=== PATIENT | female | born 1955 | race Caucasian/White ===

== ENCOUNTER 2021-04-26 23:13 | Inpatient (IN) | payer OTHER, MEDICAID ==
[~2021-04-26] VITALS: Ht 172.7 cm; Wt 72.6 kg
[2021-04-26] MEDS ORDERED: NALOXONE HCL 2 MG in D5W 5% 495 ML IV ONE (23:30)
[2021-04-27 00:04] LABS: Alcohol, Urine < 3.0 mg/dL (0-10); Amphetamine Screen, Urine NEGATIVE (NEGATIVE); Barbiturate Scree,Urine NEGATIVE (NEGATIVE); Benzodiazephine Screen, Urine NEGATIVE (NEGATIVE); Cannabinoid Screen, Urine NEGATIVE (NEGATIVE); Cocaine Screen, Urine NEGATIVE (NEGATIVE); Opiate Scree,Urine NEGATIVE (NEGATIVE); Phencyclidine Screen, Urine NEGATIVE (NEGATIVE)
[2021-04-27 00:04] LABS: Basophils # (auto) 0 10 ^3/uL (0-0.2); Basophils % (auto) 0.2 % (0.0-2.0); Eosinophils # (auto) 0.1 10 ^3/uL (0-0.8); Eosinophils % (auto) 0.5 % (0.0-7.0); Hematocrit 34.7 % (36.0-46.0); Hemoglobin 11.8 g/dL (12.2-16.2); Lymphocytes % (auto) 9.4 % (10.0-50.0); Mean Corpuscular Hemoglobin 33.3 pg (28.0-32.0); Mean Corpuscular Hgb Conc. 33.9 g/dL (32.0-36.0); Mean Corpuscular Volume 98.2 fL (80.0-100.0); Monocytes # (auto) 0.7 10 ^3/uL (0-1.3); Monocytes % (auto) 6.8 % (0.0-12.0); Neutrophils # (auto) 8.5 10 ^3/uL (1.6-8.6); Neutrophils % (auto) 83.1 % (37.0-80.0); Red Blood Cells 3.53 10^6/uL (4.0-5.20); White Blood Cell 10.2 10^3/uL (4.4-10.8)
[2021-04-27 00:23] LABS: Alanine Aminotransferase 23 U/L (13-56); Anion Gap 10 (5-15); Aspartate Aminotransferase 20 U/L (15-37); BUN/Creatinine Ratio 20.6; Blood Alcohol < 3.0 mg/dL (0-5); Blood Urea Nitrogen 36 mg/dL (7-18); Calcium 8.1 mg/dL (8.5-10.1); Carbon Dioxide 21 mmol/L (21-32); Chloride 111 mmol/L (98-107); GFR African American 37 mL/min; GFR Non-African American 31 mL/min; Glucose 107 mg/dL (74-106); Potassium 3.9 mmol/L (3.5-5.1); Sodium 142 mmol/L (136-145)
[2021-04-27 00:25] LABS: Alkaline Phosphatase 63 U/L (45-117); Bilirubin, Total 0.2 mg/dL (0.2-1.0); Total Protein 6.4 g/dL (6.4-8.2)
[2021-04-27] MEDS ORDERED: DOCU100T15 PO (00:28)
[2021-04-27] MEDS ORDERED: DIPH25CA46 PO (00:28)
[2021-04-27] MEDS ORDERED: NALOXONE HCL 2 MG in D5W 5% 495 ML IV ONE (00:30)
[2021-04-27 00:31] LABS: Acetaminophen 2.1 ug/mL (10-30); Salicylate 4.5 mg/dL (2.8-20.0)
[2021-04-27] MEDS ORDERED: NALOXONE HCL 1MG/ML 2ML SYRINGE ONE (00:54)
[2021-04-27] MEDS ORDERED: LISI20TA28 PO (01:39)
[2021-04-27] MEDS ORDERED: POTA1TAB61 PO (01:39)
[2021-04-27] MEDS ORDERED: ATO40T PO (01:39)
[2021-04-27] MEDS ORDERED: FOLITAB22 PO (01:39)
[2021-04-27] MEDS ORDERED: OXYC-113 PO (01:39)
[2021-04-27 03:56] LABS: Albumin 2.7 g/dL (3.4-5.0); BUN/Creatinine Ratio 22.2; Calcium 7.8 mg/dL (8.5-10.1); Potassium 4.5 mmol/L (3.5-5.1)
[2021-04-27 03:59] LABS: Bilirubin, Total 0.3 mg/dL (0.2-1.0); Total Protein 6.2 g/dL (6.4-8.2)
[2021-04-27 04:17] LABS: Urine Bacteria NONE SEEN /hpf (None Seen); Urine Blood Negative /uL (Negative); Urine Hyaline Cast MOD /lpf (0 - 2); Urine Mucus FEW (None Seen); Urine Specific Gravity 1.025 (1.001-1.035); Urine WBC 6 /hpf (0 - 5)
[2021-04-27 06:50] LABS: Alcohol, Urine < 3.0 mg/dL (0-10); Amphetamine Screen, Urine NEGATIVE (NEGATIVE); Barbiturate Scree,Urine NEGATIVE (NEGATIVE); Benzodiazephine Screen, Urine NEGATIVE (NEGATIVE); Cannabinoid Screen, Urine NEGATIVE (NEGATIVE); Cocaine Screen, Urine NEGATIVE (NEGATIVE); Opiate Scree,Urine NEGATIVE (NEGATIVE); Phencyclidine Screen, Urine NEGATIVE (NEGATIVE)
[2021-04-27] MEDS ORDERED: IPRATROPIUM BROM 0.5 MG/2.5ML INH SOL NEB ONE (09:45)
[2021-04-27] MEDS ORDERED: MORPHINE SULFATE INJECTION 2 MG/ML SYRG IV PRN (09:45)
[2021-04-27] MEDS ORDERED: ALBUTEROL SULF 2.5 MG/0.5ML(0.5%) NEB SOLN NEB ONE (09:45)
[2021-04-27] MEDS ORDERED: ALBUTEROL SULF 2.5 MG/0.5ML(0.5%) NEB SOLN NEB PRN (09:45)
[2021-04-27] MEDS ORDERED: ONDANSETRON HCL 4 MG/2 ML VIAL IV PRN (09:45)
[2021-04-27] MEDS ORDERED: IPRATROPIUM BROM 0.5 MG/2.5ML INH SOL NEB PRN (09:45)
[2021-04-27] MEDS ORDERED: NITROGLYCERIN 0.4 MG SL TAB SL PRN (09:45)
[2021-04-27] MEDS ORDERED: PANTOPRAZOLE 40 MG/10 ML VIAL INJ IV SCH (10:00)
[2021-04-27] MEDS ORDERED: ENOXAPARIN SOD 40 MG/0.4 ML SYRINGE SC SCH (10:00)
[2021-04-27] MEDS ORDERED: IPRATROPIUM BROM 0.5 MG/2.5ML INH SOL ONE (10:05)
[2021-04-27] MEDS ORDERED: ALBUTEROL SULF 2.5 MG/0.5ML(0.5%) NEB SOLN ONE (10:05)
[2021-04-27 10:53] LABS: Creatine Kinase IFCC 165 U/L (26-192)
[2021-04-27 11:32] VITALS: BP 98/34
[2021-04-27] MEDS ORDERED: FOLIC ACID 1 MG, MULTIPLE VITAMIN 10 ML, MAGNESIUM SULF SDV 50% 8 MEQ, THIAMINE INJ 100... INJ SCH ×5 (12:00)
[2021-04-27 17:45] VITALS: BP 143/56
== END 2021-04-27 20:39 | disposition left against medical advice (07) | DRG 92 ==
LOC: EDUNIT# 23:13 → EDBD 23:13 → ER 23:14 → TELE 04-27 09:45
PROVIDERS: ADMIT Nurse Practitioner Acute Care; ATTEND Nurse Practitioner Acute Care
DX: G92 Toxic encephalopathy (principal); M62.82 Rhabdomyolysis; N18.31 Chronic kidney disease, stage 3a; R00.1 Bradycardia, unspecified; Z20.822 Contact with and (suspected) exposure to COVID-19; Z53.29 Procedure and treatment not carried out because of patient's decision for other reasons; Z72.0 Tobacco use
CPT/HCPCS: 36415; 36600; 70450; 71045; 80053; 80307; 80320; 80329; 81001; 82550; 82805; 84484; 85025; 87426; 94640; 96365; 96366; 96367; 96372; 96375; C9113; G0378

== ENCOUNTER 2021-11-06 21:09 | Inpatient (IN) | payer OTHER, MEDICAID ==
[~2021-11-06] VITALS: Ht 160 cm; Wt 100.0 kg
[~2021-11-06 21:09] MED LIST: ATO40T PO; DIPH-599 PO; DOCU100T15 PO; FOLITAB22 PO; LISI20TA28 PO; OXYC-113 PO; POTA1TAB61 PO
[2021-11-06] MEDS ORDERED: ROCURONIUM 10MG/ML 10ML VIAL IV ONE (21:45)
[2021-11-06] MEDS ORDERED: ETOMIDATE (2MG/ML) 20ML VIAL IV ONE (21:45)
[2021-11-06 22:09] VITALS: BP 177/147
[2021-11-06 22:30] LABS: Basophils # (auto) 0.1 10 ^3/uL (0-0.2); Basophils % (auto) 1.2 % (0.0-2.0); Eosinophils # (auto) 0.3 10 ^3/uL (0-0.8); Eosinophils % (auto) 2.3 % (0.0-7.0); Hematocrit 44.8 % (36.0-46.0); Hemoglobin 15.1 g/dL (12.2-16.2); Lymphocytes % (auto) 17.6 % (10.0-50.0); Mean Corpuscular Hemoglobin 32.5 pg (28.0-32.0); Mean Corpuscular Hgb Conc. 33.7 g/dL (32.0-36.0); Mean Corpuscular Volume 96.2 fL (80.0-100.0); Monocytes # (auto) 0.9 10 ^3/uL (0-1.3); Monocytes % (auto) 8.4 % (0.0-12.0); Neutrophils # (auto) 7.8 10 ^3/uL (1.6-8.6); Neutrophils % (auto) 70.5 % (37.0-80.0); Nucleated Red Blood Cells % 0.1 %; Red Blood Cells 4.65 10^6/uL (4.0-5.20); White Blood Cell 11.1 10^3/uL (4.4-10.8)
[2021-11-06 22:33] VITALS: BP 187/82
[2021-11-06 22:43] LABS: INR 1.07 (0.9-1.15)
[2021-11-06 22:47] LABS: Albumin 3.4 g/dL (3.4-5.0); BUN/Creatinine Ratio 7.4; Calcium 9.3 mg/dL (8.5-10.1)
[2021-11-06 22:52] LABS: Alcohol, Urine < 3.0 mg/dL (0-10); Amphetamine Screen, Urine NEGATIVE (NEGATIVE); Barbiturate Scree,Urine NEGATIVE (NEGATIVE); Benzodiazephine Screen, Urine NEGATIVE (NEGATIVE); Cannabinoid Screen, Urine NEGATIVE (NEGATIVE); Cocaine Screen, Urine NEGATIVE (NEGATIVE); Opiate Scree,Urine NEGATIVE (NEGATIVE); Phencyclidine Screen, Urine NEGATIVE (NEGATIVE)
[2021-11-06 22:52] LABS: Bilirubin, Total 0.5 mg/dL (0.2-1.0); Total Protein 7.4 g/dL (6.4-8.2)
[2021-11-06 22:59] LABS: Potassium 2.8 mmol/L (3.5-5.1)
[2021-11-06] MEDS: POTASSIUM CHL 20MEQ/100ML 100 ML IV SCH (23:38)
[2021-11-06] MEDS ORDERED: ONDANSETRON HCL 4 MG/2 ML VIAL IV PRN (23:45)
[2021-11-06] MEDS ORDERED: D5W/SOD CHL 0.45% 1,000 ML IV SCH (23:45)
[2021-11-06] MEDS ORDERED: ACETAMINOPHEN 650 MG RECT SUPP PR PRN (23:45)
[2021-11-07] VITALS (73 sets, daily range): BP systolic 74–201; BP diastolic 31–111
[2021-11-07] MEDS ORDERED: MORPHINE SULFATE INJECTION 2 MG/ML SYRG IV PRN ×2 (00:30→10:00)
[2021-11-07] MEDS ORDERED: NITROGLYCERIN 0.4 MG SL TAB SL PRN (00:30)
[2021-11-07] MEDS: POTASSIUM CHL 20MEQ/100ML 100 ML IV SCH ×6 (02:55→22:12)
[2021-11-07 05:44] LABS: Urine Bacteria NONE SEEN /hpf (None Seen); Urine Blood Negative /uL (Negative); Urine Mucus FEW (None Seen); Urine Specific Gravity 1.023 (1.001-1.035); Urine WBC 11 /hpf (0 - 5)
[2021-11-07 05:46] LABS: Basophils # (auto) 0.1 10 ^3/uL (0-0.2); Basophils % (auto) 0.6 % (0.0-2.0); Eosinophils # (auto) 0.1 10 ^3/uL (0-0.8); Eosinophils % (auto) 0.6 % (0.0-7.0); Hematocrit 40.9 % (36.0-46.0); Hemoglobin 14.1 g/dL (12.2-16.2); Lymphocytes % (auto) 7.2 % (10.0-50.0); Mean Corpuscular Hgb Conc. 34.4 g/dL (32.0-36.0); Mean Corpuscular Volume 96.1 fL (80.0-100.0); Monocytes # (auto) 0.7 10 ^3/uL (0-1.3); Monocytes % (auto) 4.8 % (0.0-12.0); Neutrophils # (auto) 11.9 10 ^3/uL (1.6-8.6); Neutrophils % (auto) 86.8 % (37.0-80.0); Red Blood Cells 4.26 10^6/uL (4.0-5.20); Red Cell Distribution Width 14.3 % (11.8-14.3); White Blood Cell 13.8 10^3/uL (4.4-10.8)
[2021-11-07 05:51] LABS: Calcium 8.8 mg/dL (8.5-10.1)
[2021-11-07 05:56] LABS: Bilirubin, Total 0.6 mg/dL (0.2-1.0); Potassium 2.9 mmol/L (3.5-5.1); Total Protein 6.2 g/dL (6.4-8.2)
[2021-11-07 06:29] LABS: BUN/Creatinine Ratio 8.5
[2021-11-07] MEDS: FAMOTIDINE (10MG/ML) 2ML VL IV SCH ×2 (10:55→22:12)
[2021-11-07] MEDS: HEPARIN SODIUM (PORCINE) 5000 UNITS/ML 1ML VIAL SC SCH ×2 (11:15→22:12)
[2021-11-07] MEDS: D5W/SOD CHL 0.45%/KCL 20MEQ 1,000 ML IV SCH (12:17)
[2021-11-07] MEDS: hydrALAZINE HCL 20 MG/ML VL IV PRN (15:29)
[2021-11-07] MEDS ORDERED: MORPHINE SULFATE INJECTION 2 MG/ML SYRG ONE (16:15)
[2021-11-07] MEDS ORDERED: fentaNYL Drip 2500mCg/250mlNS 250 ML IV ONE (17:25)
[2021-11-07] MEDS: fentaNYL Drip 2500mCg/250mlNS 250 ML IV SCH (17:46)
[2021-11-07] MEDS ORDERED: ACETAMINOPHEN 650 MG RECT SUPP PR PRN (19:45)
[2021-11-07] MEDS: PROPOFOL 100 ML IV SCH (20:04)
[2021-11-08] VITALS (68 sets, daily range): BP systolic 66–213; BP diastolic 25–119
[2021-11-08 03:51] LABS: Hematocrit 40.3 % (36.0-46.0); Hemoglobin 13.9 g/dL (12.2-16.2); Mean Corpuscular Hgb Conc. 34.4 g/dL (32.0-36.0); Mean Corpuscular Volume 95.9 fL (80.0-100.0); White Blood Cell 18.7 10^3/uL (4.4-10.8)
[2021-11-08 04:03] LABS: Band Neutrophils % (manual) 0; Basophils % (manual) 0 (0.0-2.0); Blast Cells 0; Eosinophils % (manual) 0 (0-7); Metamyelocytes % 0; Myelocytes % 0; Promyelocytes % 0; Reactive Lymphocytes 0
[2021-11-08 04:07] LABS: Albumin 2.9 g/dL (3.4-5.0); BUN/Creatinine Ratio 11.8; Calcium 8.7 mg/dL (8.5-10.1); Magnesium 2.1 mg/dL (1.6-2.6); Potassium 3.7 mmol/L (3.5-5.1)
[2021-11-08 04:10] LABS: Bilirubin, Total 0.6 mg/dL (0.2-1.0); Total Protein 6.6 g/dL (6.4-8.2)
[2021-11-08 04:52] LABS: Lymphocytes % (manual) 9 (10.0-50.0); Monocytes % (manual) 11 (0-12)
[2021-11-08] MEDS: PROPOFOL 100 ML IV SCH (05:00)
[2021-11-08] MEDS: D5W/SOD CHL 0.45%/KCL 20MEQ 1,000 ML IV SCH ×2 (05:01→21:20)
[2021-11-08] MEDS: FAMOTIDINE (10MG/ML) 2ML VL IV SCH ×2 (09:24→21:20)
[2021-11-08] MEDS: LISINOPRIL 20 MG TAB PO SCH (09:25)
[2021-11-08] MEDS: HEPARIN SODIUM (PORCINE) 5000 UNITS/ML 1ML VIAL SC SCH ×2 (09:25→21:21)
[2021-11-08] MEDS: fentaNYL Drip 2500mCg/250mlNS 250 ML IV SCH (09:39)
[2021-11-08] MEDS: hydrALAZINE HCL 20 MG/ML VL IV PRN ×2 (12:44→21:25)
[2021-11-09] VITALS (24 sets, daily range): BP systolic 125–173; BP diastolic 39–69
[2021-11-09 03:39] LABS: Basophils # (auto) 0.1 10 ^3/uL (0-0.2); Basophils % (auto) 0.4 % (0.0-2.0); Eosinophils # (auto) 0.1 10 ^3/uL (0-0.8); Eosinophils % (auto) 0.4 % (0.0-7.0); Hematocrit 39.6 % (36.0-46.0); Hemoglobin 13.5 g/dL (12.2-16.2); Lymphocytes # (auto) 1.3 10 ^3/uL (0.4-5.4); Lymphocytes % (auto) 8.5 % (10.0-50.0); Mean Corpuscular Hemoglobin 32.6 pg (28.0-32.0); Mean Corpuscular Hgb Conc. 34.1 g/dL (32.0-36.0); Mean Corpuscular Volume 95.7 fL (80.0-100.0); Monocytes # (auto) 1.3 10 ^3/uL (0-1.3); Monocytes % (auto) 8.3 % (0.0-12.0); Neutrophils # (auto) 12.7 10 ^3/uL (1.6-8.6); Neutrophils % (auto) 82.4 % (37.0-80.0); Nucleated Red Blood Cells % 0.1 %; Red Blood Cells 4.14 10^6/uL (4.0-5.20); Red Cell Distribution Width 14.2 % (11.8-14.3); White Blood Cell 15.4 10^3/uL (4.4-10.8)
[2021-11-09 03:56] LABS: BUN/Creatinine Ratio 7.1; Calcium 8.8 mg/dL (8.5-10.1); Potassium 3.2 mmol/L (3.5-5.1)
[2021-11-09] MEDS: hydrALAZINE HCL 20 MG/ML VL IV PRN ×3 (06:15→20:28)
[2021-11-09] MEDS: LISINOPRIL 20 MG TAB PO SCH (10:00)
[2021-11-09] MEDS: HEPARIN SODIUM (PORCINE) 5000 UNITS/ML 1ML VIAL SC SCH ×2 (10:00→20:26)
[2021-11-09] MEDS: FAMOTIDINE (10MG/ML) 2ML VL IV SCH (10:12)
[2021-11-09] MEDS: POTASSIUM CHL 20MEQ/100ML 100 ML IV SCH ×2 (11:53→13:00)
[2021-11-09] MEDS: D5W/SOD CHL 0.45%/KCL 20MEQ 1,000 ML IV SCH (13:55)
[2021-11-09] MEDS ORDERED: cefTRIAXone 1GM/50ML D5W 50 ML IV ONE (15:30)
[2021-11-09] MEDS: MUPIROCIN 2% OINT 15gm or 22gm EACHNOSTRI SCH (20:26)
[2021-11-10] VITALS (25 sets, daily range): BP systolic 122–183; BP diastolic 42–77
[2021-11-10 04:08] LABS: Basophils # (auto) 0 10 ^3/uL (0-0.2); Basophils % (auto) 0.4 % (0.0-2.0); Eosinophils # (auto) 0.1 10 ^3/uL (0-0.8); Hematocrit 39.9 % (36.0-46.0); Hemoglobin 13.5 g/dL (12.2-16.2); Lymphocytes # (auto) 1.3 10 ^3/uL (0.4-5.4); Lymphocytes % (auto) 11.2 % (10.0-50.0); Mean Corpuscular Hemoglobin 32.4 pg (28.0-32.0); Mean Corpuscular Hgb Conc. 33.8 g/dL (32.0-36.0); Mean Corpuscular Volume 95.9 fL (80.0-100.0); Monocytes # (auto) 1.1 10 ^3/uL (0-1.3); Monocytes % (auto) 9.6 % (0.0-12.0); Neutrophils # (auto) 8.8 10 ^3/uL (1.6-8.6); Neutrophils % (auto) 77.8 % (37.0-80.0); Nucleated Red Blood Cells % 0.1 %; Red Blood Cells 4.16 10^6/uL (4.0-5.20); Red Cell Distribution Width 14.3 % (11.8-14.3); White Blood Cell 11.3 10^3/uL (4.4-10.8)
[2021-11-10 04:15] LABS: Magnesium 2.2 mg/dL (1.6-2.6); Potassium 3.8 mmol/L (3.5-5.1)
[2021-11-10] MEDS: hydrALAZINE HCL 20 MG/ML VL IV PRN ×2 (05:34→16:29)
[2021-11-10] MEDS: D5W/SOD CHL 0.45%/KCL 20MEQ 1,000 ML IV SCH ×2 (06:25→22:35)
[2021-11-10] MEDS: cefTRIAXone 1GM/50ML D5W 50 ML IV SCH (08:59)
[2021-11-10] MEDS: HEPARIN SODIUM (PORCINE) 5000 UNITS/ML 1ML VIAL SC SCH ×2 (10:00→19:09)
[2021-11-10] MEDS: MUPIROCIN 2% OINT 15gm or 22gm EACHNOSTRI SCH ×2 (10:00→20:05)
[2021-11-10] MEDS: LISINOPRIL 20 MG TAB PO SCH (10:15)
[2021-11-10] MEDS: METOPROLOL TARTRATE 25 MG TAB PO SCH (20:05)
[2021-11-11] VITALS (16 sets, daily range): BP systolic 125–177; BP diastolic 31–76
[2021-11-11 04:09] LABS: Basophils # (auto) 0 10 ^3/uL (0-0.2); Basophils % (auto) 0.5 % (0.0-2.0); Eosinophils # (auto) 0.1 10 ^3/uL (0-0.8); Eosinophils % (auto) 1.5 % (0.0-7.0); Hematocrit 38.4 % (36.0-46.0); Lymphocytes # (auto) 1.4 10 ^3/uL (0.4-5.4); Lymphocytes % (auto) 16.2 % (10.0-50.0); Mean Corpuscular Hemoglobin 32.8 pg (28.0-32.0); Mean Corpuscular Hgb Conc. 33.9 g/dL (32.0-36.0); Mean Corpuscular Volume 96.6 fL (80.0-100.0); Monocytes % (auto) 11.7 % (0.0-12.0); Neutrophils # (auto) 6.3 10 ^3/uL (1.6-8.6); Neutrophils % (auto) 70.1 % (37.0-80.0); Red Blood Cells 3.97 10^6/uL (4.0-5.20); Red Cell Distribution Width 13.8 % (11.8-14.3); White Blood Cell 8.9 10^3/uL (4.4-10.8)
[2021-11-11 04:19] LABS: Potassium 3.2 mmol/L (3.5-5.1)
[2021-11-11 04:30] LABS: Alanine Aminotransferase 43 U/L (13-56); Albumin 2.5 g/dL (3.4-5.0); Aspartate Aminotransferase 35 U/L (15-37); BUN/Creatinine Ratio 17.6; Blood Urea Nitrogen 9 mg/dL (7-18); Calcium 8.6 mg/dL (8.5-10.1); Carbon Dioxide 26 mmol/L (21-32); GFR African American 155 mL/min; GFR Non-African American 128 mL/min; Glucose 99 mg/dL (74-106)
[2021-11-11 04:33] LABS: Alkaline Phosphatase 65 U/L (45-117); Bilirubin, Total 0.4 mg/dL (0.2-1.0); Total Protein 6.1 g/dL (6.4-8.2)
[2021-11-11 04:44] LABS: Sodium 144 mmol/L (136-145)
[2021-11-11 05:06] LABS: Anion Gap 7 (5-15); Chloride 111 mmol/L (98-107)
[2021-11-11] MEDS ORDERED: POTASSIUM CHL 20MEQ/100ML 100 ML IV ONE (06:00)
[2021-11-11] MEDS: cefTRIAXone 1GM/50ML D5W 50 ML IV SCH (08:46)
[2021-11-11] MEDS: MUPIROCIN 2% OINT 15gm or 22gm EACHNOSTRI SCH ×2 (10:53→21:54)
[2021-11-11] MEDS: LISINOPRIL 20 MG TAB PO SCH ×2 (10:54→11:12)
[2021-11-11] MEDS: METOPROLOL TARTRATE 25 MG TAB PO SCH ×3 (10:54→21:53)
[2021-11-11] MEDS: HEPARIN SODIUM (PORCINE) 5000 UNITS/ML 1ML VIAL SC SCH ×2 (10:55→21:54)
[2021-11-11] MEDS ORDERED: SODIUM CHLORIDE 0.9% 500 ML IV ONE (11:30)
[2021-11-11] MEDS ORDERED: FUROSEMIDE 20 MG/2 ML VIAL IV ONE (13:30)
[2021-11-11] MEDS ORDERED: levoFLOXacin 500MG 100 ML IV ONE (14:15)
[2021-11-11] MEDS: POTASSIUM CHL 20MEQ/100ML 100 ML IV SCH ×2 (16:15→22:29)
[2021-11-12 04:37] VITALS: BP 135/70
[2021-11-12] MEDS ORDERED: POTASSIUM CHL 20 Meq TABLET PO ONE (08:45)
[2021-11-12 09:00] VITALS: BP 146/64
[2021-11-12] MEDS: MUPIROCIN 2% OINT 15gm or 22gm EACHNOSTRI SCH ×2 (09:58→22:31)
[2021-11-12] MEDS: METOPROLOL TARTRATE 25 MG TAB PO SCH ×2 (09:59→22:31)
[2021-11-12] MEDS ORDERED: levoFLOXacin 500MG 100 ML IV SCH (10:00)
[2021-11-12] MEDS: HEPARIN SODIUM (PORCINE) 5000 UNITS/ML 1ML VIAL SC SCH ×2 (10:22→22:00)
[2021-11-12 13:15] VITALS: BP 141/75
[2021-11-12] MEDS ORDERED: POTASSIUM EFFERVESENT TAB 25 MEQ PO ONE (13:45)
[2021-11-12 16:43] VITALS: BP 157/83
[2021-11-12 22:00] VITALS: BP 140/67
[2021-11-12] MEDS ORDERED: TEMAZEPAM 15 MG CAP PO ONE (22:45)
[2021-11-13 05:00] VITALS: BP 136/71
[2021-11-13 05:53] LABS: Basophils # (auto) 0.1 10 ^3/uL (0-0.2); Basophils % (auto) 0.7 % (0.0-2.0); Eosinophils # (auto) 0.2 10 ^3/uL (0-0.8); Eosinophils % (auto) 2.1 % (0.0-7.0); Hematocrit 37.1 % (36.0-46.0); Hemoglobin 12.8 g/dL (12.2-16.2); Lymphocytes # (auto) 2.2 10 ^3/uL (0.4-5.4); Lymphocytes % (auto) 26.7 % (10.0-50.0); Mean Corpuscular Hemoglobin 32.8 pg (28.0-32.0); Mean Corpuscular Hgb Conc. 34.4 g/dL (32.0-36.0); Mean Corpuscular Volume 95.2 fL (80.0-100.0); Monocytes # (auto) 0.8 10 ^3/uL (0-1.3); Monocytes % (auto) 9.1 % (0.0-12.0); Neutrophils # (auto) 5.2 10 ^3/uL (1.6-8.6); Neutrophils % (auto) 61.4 % (37.0-80.0); Nucleated Red Blood Cells % 0.2 %; Red Cell Distribution Width 13.4 % (11.8-14.3); White Blood Cell 8.4 10^3/uL (4.4-10.8)
[2021-11-13 06:15] LABS: Potassium 3.8 mmol/L (3.5-5.1)
[2021-11-13 06:17] LABS: Magnesium 2.3 mg/dL (1.6-2.6)
[2021-11-13 09:00] VITALS: BP 148/70
[2021-11-13] MEDS: MUPIROCIN 2% OINT 15gm or 22gm EACHNOSTRI SCH (09:07)
[2021-11-13] MEDS: METOPROLOL TARTRATE 25 MG TAB PO SCH (09:08)
[2021-11-13] MEDS: HEPARIN SODIUM (PORCINE) 5000 UNITS/ML 1ML VIAL SC SCH (09:11)
[2021-11-13] MEDS ORDERED: levoFLOXacin 500 MG TAB PO SCH (10:00)
[2021-11-13] MEDS ORDERED: LISINOPRIL 20 MG TAB PO ONE (12:45)
[2021-11-13] MEDS ORDERED: OLAN1TAB7 PO (12:46)
[2021-11-13] MEDS ORDERED: LISI20TA28 PO (12:46)
[2021-11-13] MEDS ORDERED: MET25T PO (12:46)
[2021-11-13] MEDS ORDERED: SPIR25TA8 PO (12:52)
[2021-11-13 13:00] VITALS: BP 140/72
[2021-11-13 14:09] VITALS: BP 133/78
[2021-11-13 17:00] VITALS: BP 146/63
[2021-11-13] MEDS ORDERED: OLANZapine 5 MG TAB PO SCH (18:00)
[2021-11-14] MEDS ORDERED: LISINOPRIL 20 MG TAB PO SCH (10:00)
== END 2021-11-13 17:25 | disposition home health service (06) | DRG 917 ==
LOC: EDUNIT# 21:09 → EDBD 21:09 → ER 21:13 → ICU WEST 11-07 00:24 → TELE-CENTR 11-11 17:00
PROVIDERS: ADMIT Nurse Practitioner Family; ATTEND Internal Medicine Nephrology
PROC: 5A1945Z Respiratory Ventilation, 24-96 Consecutive Hours (ICD-10-PCS; 2021-11-06)
PROC: 0BH17EZ Insertion of Endotracheal Airway into Trachea, Via Natural or Artificial Opening (ICD-10-PCS; 2021-11-06)
PROC: 06HY33Z Insertion of Infusion Device into Lower Vein, Percutaneous Approach (ICD-10-PCS; 2021-11-06)
PROC: 05HC33Z Insertion of Infusion Device into Left Basilic Vein, Percutaneous Approach (ICD-10-PCS; principal; 2021-11-11)
PROC: B54NZZA Ultrasonography of Left Upper Extremity Veins, Guidance (ICD-10-PCS; 2021-11-11)
DX: T40.2X1A Poisoning by other opioids, accidental (unintentional), initial encounter (principal); A41.51 Sepsis due to Escherichia coli [E. coli]; J96.01 Acute respiratory failure with hypoxia; G92.8 Other toxic encephalopathy; I16.1 Hypertensive emergency; N39.0 Urinary tract infection, site not specified; N18.9 Chronic kidney disease, unspecified; E87.6 Hypokalemia; T14.91XA Suicide attempt, initial encounter; I12.9 Hypertensive chronic kidney disease with stage 1 through stage 4 chronic kidney disease, or unspecified chronic kidney disease; B95.2 Enterococcus as the cause of diseases classified elsewhere; R68.0 Hypothermia, not associated with low environmental temperature; E78.5 Hyperlipidemia, unspecified; F31.9 Bipolar disorder, unspecified; Z20.822 Contact with and (suspected) exposure to COVID-19; E66.9 Obesity, unspecified; G89.4 Chronic pain syndrome; Z91.51 Personal history of suicidal behavior; Z68.39 Body mass index [BMI] 39.0-39.9, adult; Y92.89 Other specified places as the place of occurrence of the external cause
CPT/HCPCS: 31500; 36415; 36600; 70450; 71045; 80048; 80053; 80061; 80307; 81001; 82306; 82805; 82962; 83605; 83735; 83880; 84132; 84443; 84484; 85007; 85025; 85027; 85610; 87040; 87070; 87081; 87086; 87088; 87186; 87205; 92610; 93005; 93306; 94003; 94640; 95819; 96374; 97163; 99152; 99153; 99291; 99292; G0378; J0696; J1956; J2704; J3480; J3490

== ENCOUNTER 2022-02-26 12:46 | Inpatient (IN) | payer OTHER, MEDICAID ==
[~2022-02-26] VITALS: Ht 170.2 cm; Wt 78.0 kg
[~2022-02-26 12:46] MED LIST changes: -DIPH-599 PO; -DOCU100T15 PO; -FOLITAB22 PO; +MET25T PO; +OLAN1TAB7 PO; -OXYC-113 PO; -POTA1TAB61 PO
[2022-02-26 14:42] LABS: Alanine Aminotransferase 21 U/L (13-56); Albumin 3.6 g/dL (3.4-5.0); Anion Gap 6 (5-15); Aspartate Aminotransferase 17 U/L (15-37); BUN/Creatinine Ratio 18.1; Basophils # (auto) 0 10 ^3/uL (0-0.2); Basophils % (auto) 0.3 % (0.0-2.0); Blood Alcohol < 3.0 mg/dL (0-5); Blood Urea Nitrogen 13 mg/dL (7-18); Calcium 9.4 mg/dL (8.5-10.1); Carbon Dioxide 28 mmol/L (21-32); Chloride 111 mmol/L (98-107); Eosinophils # (auto) 0.1 10 ^3/uL (0-0.8); Eosinophils % (auto) 1.3 % (0.0-7.0); GFR African American 104 mL/min; GFR Non-African American 86 mL/min; Glucose 98 mg/dL (74-106); Hematocrit 41.7 % (36.0-46.0); Hemoglobin 13.5 g/dL (12.2-16.2); Lymphocytes # (auto) 0.9 10 ^3/uL (0.4-5.4); Lymphocytes % (auto) 9.2 % (10.0-50.0); Mean Corpuscular Hemoglobin 30.6 pg (28.0-32.0); Mean Corpuscular Hgb Conc. 32.4 g/dL (32.0-36.0); Mean Corpuscular Volume 94.5 fL (80.0-100.0); Monocytes # (auto) 0.5 10 ^3/uL (0-1.3); Monocytes % (auto) 5.2 % (0.0-12.0); Neutrophils # (auto) 8.6 10 ^3/uL (1.6-8.6); Nucleated Red Blood Cells % 0.1 %; Potassium 4.2 mmol/L (3.5-5.1); Red Blood Cells 4.41 10^6/uL (4.0-5.20); Red Cell Distribution Width 14.7 % (11.8-14.3); Sodium 145 mmol/L (136-145); White Blood Cell 10.2 10^3/uL (4.4-10.8)
[2022-02-26 14:44] LABS: Alkaline Phosphatase 74 U/L (45-117); Bilirubin, Total 0.3 mg/dL (0.2-1.0); Total Protein 7.5 g/dL (6.4-8.2)
[2022-02-26 14:48] LABS: Salicylate 4.8 mg/dL (2.8-20.0)
[2022-02-26 15:12] LABS: Acetaminophen < 2.0 ug/mL (10-30)
[2022-02-26] MEDS ORDERED: MORPHINE SULFATE INJ 2 MG/ml SYRG IV PRN (18:00)
[2022-02-26] MEDS ORDERED: NITROGLYCERIN 0.4 MG SL TAB SL PRN (18:00)
[2022-02-27 07:26] LABS: Basophils # (auto) 0 10 ^3/uL (0-0.2); Basophils % (auto) 0.4 % (0.0-2.0); Eosinophils # (auto) 0.1 10 ^3/uL (0-0.8); Hematocrit 41.4 % (36.0-46.0); Hemoglobin 14.2 g/dL (12.2-16.2); Lymphocytes # (auto) 1.6 10 ^3/uL (0.4-5.4); Lymphocytes % (auto) 16.2 % (10.0-50.0); Mean Corpuscular Hemoglobin 32.1 pg (28.0-32.0); Mean Corpuscular Hgb Conc. 34.2 g/dL (32.0-36.0); Mean Corpuscular Volume 93.7 fL (80.0-100.0); Monocytes # (auto) 0.8 10 ^3/uL (0-1.3); Monocytes % (auto) 7.6 % (0.0-12.0); Neutrophils # (auto) 7.6 10 ^3/uL (1.6-8.6); Neutrophils % (auto) 74.8 % (37.0-80.0); Nucleated Red Blood Cells % 0.1 %; Red Blood Cells 4.42 10^6/uL (4.0-5.20); Red Cell Distribution Width 14.9 % (11.8-14.3); White Blood Cell 10.2 10^3/uL (4.4-10.8)
[2022-02-27 07:42] LABS: Albumin 3.7 g/dL (3.4-5.0); Calcium 9.1 mg/dL (8.5-10.1); Potassium 3.7 mmol/L (3.5-5.1)
[2022-02-27 07:47] LABS: BUN/Creatinine Ratio 26.3; Bilirubin, Total 0.3 mg/dL (0.2-1.0); Total Protein 7.3 g/dL (6.4-8.2)
[2022-02-27] MEDS: ENOXAPARIN SOD 40 MG/0.4 ML SYRINGE SC SCH ×2 (10:16→10:19)
[2022-02-27 21:36] VITALS: BP 168/68
[2022-02-28 05:00] VITALS: BP 165/72
[2022-02-28 08:00] VITALS: BP 161/60
[2022-02-28 12:00] VITALS: BP 140/50
[2022-02-28 16:00] VITALS: BP 154/67
[2022-02-28] MEDS: METOPROLOL TARTRATE 25 MG TAB PO SCH (21:50)
[2022-02-28 22:00] VITALS: BP 174/74
[2022-02-28] MEDS ORDERED: ATORVASTATIN 20 MG TAB PO SCH (22:00)
[2022-03-01] MEDS ORDERED: HALOPERIDOL LACTATE 5 MG/ML INJ VIAL IM PRN (00:15)
[2022-03-01 05:20] VITALS: BP 167/75
[2022-03-01 07:12] LABS: Basophils # (auto) 0.1 10 ^3/uL (0-0.2); Basophils % (auto) 0.6 % (0.0-2.0); Eosinophils # (auto) 0.1 10 ^3/uL (0-0.8); Eosinophils % (auto) 0.5 % (0.0-7.0); Hematocrit 41.1 % (36.0-46.0); Hemoglobin 13.5 g/dL (12.2-16.2); Lymphocytes # (auto) 1.3 10 ^3/uL (0.4-5.4); Lymphocytes % (auto) 12.9 % (10.0-50.0); Mean Corpuscular Hemoglobin 30.7 pg (28.0-32.0); Mean Corpuscular Hgb Conc. 32.8 g/dL (32.0-36.0); Mean Corpuscular Volume 93.7 fL (80.0-100.0); Monocytes % (auto) 9.7 % (0.0-12.0); Neutrophils # (auto) 7.9 10 ^3/uL (1.6-8.6); Neutrophils % (auto) 76.3 % (37.0-80.0); Red Blood Cells 4.38 10^6/uL (4.0-5.20); Red Cell Distribution Width 14.8 % (11.8-14.3); White Blood Cell 10.4 10^3/uL (4.4-10.8)
[2022-03-01 07:27] LABS: BUN/Creatinine Ratio 35.1; Potassium 3.4 mmol/L (3.5-5.1)
[2022-03-01 08:41] VITALS: BP 160/78
[2022-03-01] MEDS ORDERED: LISINOPRIL 20 MG TAB PO SCH (10:00)
[2022-03-01] MEDS ORDERED: OLANZapine 5 MG TAB PO SCH (10:00)
[2022-03-01] MEDS: ENOXAPARIN SOD 40 MG/0.4 ML SYRINGE SC SCH (10:56)
[2022-03-01] MEDS: METOPROLOL TARTRATE 25 MG TAB PO SCH (10:56)
[2022-03-01 13:00] VITALS: BP 154/75
[2022-03-01 17:13] VITALS: BP 153/71
[2022-03-01] MEDS ORDERED: IBUPROFEN 600 MG TAB PO PRN (20:45)
== END 2022-03-01 21:10 | disposition left against medical advice (07) | DRG 72 ==
LOC: EDBD 12:46 → ER 12:46 → TELE 17:50 → TELE-WESTW 02-27 18:26
PROVIDERS: ADMIT Registered Nurse; ATTEND Internal Medicine
DX: G93.41 Metabolic encephalopathy (principal); Z20.822 Contact with and (suspected) exposure to COVID-19; Z53.29 Procedure and treatment not carried out because of patient's decision for other reasons; E78.5 Hyperlipidemia, unspecified; F20.9 Schizophrenia, unspecified; F31.9 Bipolar disorder, unspecified; I11.0 Hypertensive heart disease with heart failure
CPT/HCPCS: 36415; 70450; 70551; 71045; 80048; 80053; 80320; 80329; 82140; 82962; 83605; 83735; 83880; 84484; 85025; 93005; 95819; 97163; G0378